=== PATIENT | female | born 1945 | race Caucasian/White ===

== ENCOUNTER 2021-02-26 14:07 | Emergency (ER) | payer OTHER, MEDICARE ==
[~2021-02-26] VITALS: Ht 162.6 cm; Wt 81.6 kg
[2021-02-26] MEDS ORDERED: MORPHINE SULFATE INJ 4 MG/ML INJ 1ML IV STA (15:18)
[2021-02-26] MEDS ORDERED: ONDANSETRON HCL INJ 2MG/ML 2ML 2 MG/ML VIAL IV STA (15:18)
[2021-02-26 15:31] LABS: BASOPHILS % 0.5 % (0.0-1.0); EOSINOPHILS # (AUTO) 0.2 (0.0-0.4); EOSINOPHILS % 2.5 % (0.0-6.0); HEMATOCRIT 33.6 % (34.2-44.1); HEMOGLOBIN 11.4 g/dL (12.0-16.0); LYMPHOCYTES # (AUTO) 1.1 (1.0-3.2); LYMPHOCYTES % 17.2 % (18.0-39.1); MEAN CORPUSCULAR HEMOGLOBIN 29.5 pg (28-32); MEAN CORPUSCULAR HGB CONC 33.9 g/dL (31-35); MEAN CORPUSCULAR VOLUME 86.8 fL (81-99); MONOCYTES # (AUTO) 0.4 (0.2-0.8); MONOCYTES % 6.4 % (4.4-11.3); NEUTROPHILS # (AUTO) 4.7 (2.1-6.9); NEUTROPHILS % 72.9 % (38.7-80.0); PLATELET COUNT 206 x10e3/uL (140-360); RED BLOOD COUNT 3.87 x10e6/uL (3.6-5.1); RED CELL DISTRIBUTION WIDTH 13.6 % (11.7-14.4)
[2021-02-26 15:53] LABS: ALBUMIN 3.7 g/dL (3.5-5.0); ANION GAP 13.1 mmol/L (8-16); CALCIUM 8.6 mg/dL (8.4-10.2); CREATININE, SERUM 0.93 mg/dL (0.57-1.11); POTASSIUM 4.1 mmol/L (3.5-5.1)
[2021-02-26] MEDS ORDERED: HYDROCODONE/APAP 5MG-325MG TAB PO ONE (16:15)
[2021-02-26] MEDS ORDERED: HYDROCODON-ACE1 EA11 PO (16:53)
[2021-02-26] MEDS ORDERED: ZOFRAN4 MG PO (16:53)
[2021-02-26 17:47] VITALS: BP 162/74
== END 2021-02-26 17:38 | disposition home or self-care (01) ==
LOC: ER 14:16
DX: S42.201A Unspecified fracture of upper end of right humerus, initial encounter for closed fracture (principal); W01.0XXA Fall on same level from slipping, tripping and stumbling without subsequent striking against object, initial encounter; Y93.01 Activity, walking, marching and hiking; Y92.512 Supermarket, store or market as the place of occurrence of the external cause; E11.65 Type 2 diabetes mellitus with hyperglycemia; I10 Essential (primary) hypertension; E78.5 Hyperlipidemia, unspecified; E03.9 Hypothyroidism, unspecified; D86.9 Sarcoidosis, unspecified
CPT/HCPCS: 36415; 73060; 80053; 85025; 99284; J2270; J2405